=== PATIENT | male | born 1975 | race Caucasian/White ===

== ENCOUNTER → 2020-03-28 | Day surgery (SDC) | payer BC ==
[~2020-03-28] MED LIST: ACETAMINOPHEN 325 MG TABLET ONE; FENTANYL CITR 100 MCG/2 ML ONE; KETOROLAC 30 MG/ML INJ ONE; LIDOCAINE 1% MPF 5 ML VIAL ONE; LIDOCAINE 1% W/EPI 1:100,000 MDV 20 ML VIAL ONE; MIDAZOLAM HCL 2 MG/2 ML INJ ONE; Mastisol Adhesive Liq ONE; ONDANSETRON 4 MG/2 ML VIAL ONE; OXYMETAZOLINE HCL 0.05% 15ML NAS ONE; Ringers Lactate 1,000 ML IV ONE; dexAMETHasone 4 MG/ML VIAL ONE; propofoL 200 MG/20 ML VIAL IV ONE
--- OUTSIDE RECORDS SUMMARY | 2020-03-28 09:30 | XMS REPORT | Continuity of Care Document ---
:1975 Author Organization [facility] t Address [address] [place] [address] Dr. Palomo. [address] [place] [id number] Care Team Providers Name Role Phone DR JACQUES Attending Clinician Unavailable DR JACQUES Admitting Clinician Unavailable Problems This patient has no known problems. Allergies, Adverse Reactions, Alerts This patient has no known allergies or adverse reactions. Medications This patient has no known medications. Procedures This patient has no known procedures. Encounters Start End Encounter Admission Attending Care Care Encounter Source Date/Time Date/Time Type Type Clinicians Facility Department ID 2017-04-22 2017-04-22 Outpatient [place] [facility] [id number] 04:01:00 08:10:00 [facility] Results This patient has no known results.
[2020-03-28] MEDS: HYDROMORPHONE HCL 1 MG/ML INJ ONE ×4 (10:55→11:30)
[2020-03-28 11:12] VITALS: TEMP 97.1
[2020-03-28 11:17] VITALS: BP 125/59; O2SAT 100
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
== END ==
LOC: OR 09:25
PROVIDERS: ATTEND Otolaryngology
PROC: 0NSBXZZ Reposition Nasal Bone, External Approach (ICD-10-PCS; principal; 2020-03-28 08:45)
DX: S02.2XXA Fracture of nasal bones, initial encounter for closed fracture (principal); J34.2 Deviated nasal septum; M95.0 Acquired deformity of nose; J34.89 Other specified disorders of nose and nasal sinuses; R03.0 Elevated blood-pressure reading, without diagnosis of hypertension; Z20.828 Contact with and (suspected) exposure to other viral communicable diseases
CPT/HCPCS: 21320; 93005; U0002; J2250; J2405 ×2; J1100; J1170; J2704; J3010; J7120

== ENCOUNTER 2021-12-29 14:15 | Emergency (ER) | payer SELFPAY ==
--- OUTSIDE RECORDS SUMMARY | 2021-12-29 14:17 | XMS REPORT | Continuity of Care Document ---
:1975 Author Organization [facility] t Address [address] [place] [address] Dr. Palomo. [address] [place] [id number] Care Team Providers Name Role Phone DR [...] Department ID 2017-04-22 2017-04-22 Outpatient SANAZ KENT [facility] [place] [id number] 04:01:00 08:10:00 [facility] Results This patient has no known results.
--- NOTE | 2021-12-29 15:25 | RAD REPORT ---
EXAM DESCRIPTION: RAD - Chest Pa And Lat (2 Views) - 12/29/2021 3:11 pm CLINICAL HISTORY: Rib Pain - Left COMPARISON: None TECHNIQUE: Frontal and lateral views of the chest were obtained. FINDINGS: The lungs are clear. Minimal scarring changes seen lateral mid right lung field. Heart si ze is normal and central vasculature is within normal limits. No pleural effusion or pneumothorax se en. No aortic abnormality. Cortex of the posterior left third rib is irregular and nondisplaced fracture is suspected. This is n ot a usual site for fracture. No trauma history was detailed. Nondisplaced fracture of the tenth rib is seen. There may be nondisplaced fracture of the eighth rib. Rib detail is limited on standard two view imaging. IMPRESSION: Lateral lower left chest rib fractures are present, nondisplaced, with possible nondispl aced posterior third rib fracture on the left. No pathologic rib changes are seen. Rib detail is limited on standard two view exam. No trauma was de tailed. Fracture of the posterior third rib is unusual. Correlation is needed with any trauma history.
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
[2021-12-29 18:23] VITALS: BP 129/79; TEMP 98.2; O2SAT 100
== END 2021-12-29 18:18 | disposition left against medical advice (07) ==
LOC: ER 14:15
DX: Z53.21 Procedure and treatment not carried out due to patient leaving prior to being seen by health care provider (principal)
CPT/HCPCS: 71046; 99282

== ENCOUNTER 2024-10-12 12:36 | Emergency (ER) | payer BC ==
--- OUTSIDE RECORDS SUMMARY | 2024-10-12 12:38 | XMS REPORT | Continuity of Care Document ---
Author Name Unknown Address [address] [place] [address] [place] [address] [address] [place] [address] Care Team Providers Care Armed Security Professional Name Role Phone DR VERNON HANNA Attending Clinician Unavailable DR VERNON HANNA Admitting Clinician Unavailable Encounters Start Date/Time End Date/Time Encounter Type Admission Type Attending Clinicians Care Facility Care Department Encounter ID Source 2017-04-22 04:01:00 2017-04-22 08:10:00 Outpatient C VERNON HANNA [facility] [id number] [facility]
[2024-10-12] MEDS ORDERED: HYDROCODONE/APAP 5/325 MG TAB ONE (13:30)
--- NOTE | 2024-10-12 14:23 | RAD REPORT ---
EXAMINATION: XR RIGHT FOOT CLINICAL INDICATION: Male, 49 years old. PAIN TECHNIQUE: Multiple views of the right foot were obtained. COMPARISON: No prior exam. FINDINGS: Fracture involving the base of the distal phalanx of the great toe in a transverse fashion. Oblique fracture is seen involving the distal shaft of the second, fourth and fifth metatarsals. Mild soft tissue swelling along the dorsum of the forefoot.
--- NOTE | 2024-10-12 14:33 | EDPHYS ---
Physician Documentation [facility] Name: Hollis Patterson Age: 49 yrs Sex: Male : 1975 Arrival Date: 10/12/2024 Time: 12:36 Bed 11 Private MD: ED Physician Benedict Mensah HPI: 10/12 21:15 This 49 yrs old Male presents to ER via Ambulatory with complaints of Foot Injury - ms3 Right. 21:15 49-year-old male with no past medical history presents to the emergency department for ms3 right foot fractures. Patient states he was seen at [facility] on Tuesday after his injury. Patient states he was trying to clear his lawnmower discharge when his boot hit the lawnmower blade. Patient states his foot was placed in an Mando wrap and the pain has increased since being discharged from the emergency department.. Historical: - Allergies: 12:43 PENICILLINS; iw 12:43 Tramadol HCl; iw - Immunization history:: Adult Immunizations unknown. - Infectious Disease History:: Denies. - Social history:: Smoking status: unknown. ROS: 21:16 Constitutional: Negative for fever, and chills. Cardiovascular: Negative for chest ms3 pain, and palpitations. Respiratory: Negative for shortness of breath, cough, wheezing, and pleuritic chest pain, Abdomen/GI: Negative for abdominal pain, nausea, vomiting, diarrhea, and constipation, 21:16 MS/extremity: Positive for Right foot pain, Exam: 21:16 Constitutional: This is a well developed, well nourished patient who is awake, alert, ms3 and in no acute distress. Cardiovascular: Regular rate and rhythm with a normal S1 and S2. No gallops, murmurs, or rubs. Normal PMI, no JVD. No pulse deficits. Respiratory: Lungs have equal breath sounds bilaterally, clear to auscultation and percussion. No rales, rhonchi or wheezes noted. No increased work of breathing, no retractions or nasal flaring. Abdomen/GI: Soft, non-tender, with normal bowel sounds. No distension or tympany. No guarding or rebound. No evidence of tenderness throughout. 21:16 Musculoskeletal/extremity: Extremities: noted in the Right foot: contusion, ecchymosis, pain, swelling, tenderness, 21:16 Skin: Ecchymosis of right great toe. Vital Signs: 12:41 BP 129 / 79; Pulse 79; Resp 18; Pulse Ox 100% ; Weight 67.13 kg; Height 5 ft. 9 in. ; iw Pain 8/10; 14:40 BP 128 / 78; Pulse 80; Resp 20; Temp 98; Pulse Ox 100% on R/A; kj2 12:41 Body Mass Index 21.86 (67.13 kg, 175.26 cm) iw 12:41 Pain Scale: Adult iw MDM: 13:23 Medical Screening Exam initiated ms3 21:16 Differential diagnosis: fracture, sprain. Data reviewed: vital signs, nurses notes, ms3 radiologic studies, and as a result, I will discharge patient. I considered the following discharge prescriptions or medication management in the emergency department Medications were administered in the Emergency Department. See MAR. Independent interpretation of the following test(s) in the Emergency Department X-Ray: My interpretation is Right foot x-ray images reviewed by me reveal distal phalanx fracture of great toe, metatarsal fractures of the 2nd, 4th and 5th metatarsal. Counseling: I had a detailed discussion with the patient and/or guardian regarding the historical points, exam findings, and any diagnostic results supporting the discharge/admit diagnosis, lab results, radiology results, the need for outpatient follow up, to return to the emergency department if symptoms worsen or persist or if there are any questions or concerns that arise at home. Special discussion: I discussed with the patient/guardian in detail that at this point there is no indication for admission to the hospital. It is understood, however, that if the symptoms persist or worsen the patient needs to return immediately for re-evaluation. ED course: On reevaluation patient is without compartment syndrome, symptoms have improved, alert and orient x 4, no apparent distress. Patient to follow-up with podiatry in 2 to 3 days. Patient understands and agrees with plan. All questions were answered. Return precautions discussed include worsening symptoms, or any other concerns. Patient placed in Ortho boot and patient brought crutches to the emergency department for use. 10/12 13:15 Order name: Foot Right 3 View XRAY ms3 10/12 14:33 Order name: Misc. Order: Ortho boot; Complete Time: 15:11 ms3 Administered Medications: 13:36 Drug: HYDROcodone-acetaminophen PO 5 mg-325 mg 1 tabs PO once Route: PO; kj2 15:02 Follow up: Response: No adverse reaction kj2 Disposition Summary: 10/12/24 14:32 Discharge Ordered Notes: Location: Home ms3 Condition: Stable ms3 Diagnosis - Fracture of fifth metatarsal bone ms3 - Fracture of fourth metatarsal bone ms3 - Displaced fracture of second metatarsal bone, right foot, initial encounter for ms3 closed fracture - Nondisplaced fracture of distal phalanx of right great toe, initial encounter for ms3 closed fracture Followup: ms3 - With: Umang Rodriguez DPM - When: 2 - 3 days - Reason: Recheck today's complaints Discharge Instructions: - Discharge Summary Sheet ms3 - Metatarsal Fracture ms3 - Toe Fracture, [id number] ms3 Forms: - Medication Reconciliation Form ms3 - Antibiotic Education ms3 - Prescription Opioid Use ms3 - Patient Portal Instructions ms3 - Leadership Thank You Letter ms3 Prescriptions: - Tylenol-Codeine #3 300mg-30mg Oral tablet - take 1 tablet ORAL route every 4 hours As needed; 12 tablet; Refills: 0, ms3 Product Selection Permitted Signatures: Dispatcher [employer] Lilibeth Jeffries, RN RN Benedict Walker DO DO ms3 Emma Varela, RN RN kj2
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
[2024-10-12 16:23] VITALS: BP 128/78; TEMP 98; O2SAT 100
== END 2024-10-12 15:23 | disposition home or self-care (01) ==
LOC: ER 12:36
DX: S92.351A Displaced fracture of fifth metatarsal bone, right foot, initial encounter for closed fracture (principal); S92.341A Displaced fracture of fourth metatarsal bone, right foot, initial encounter for closed fracture; S92.321A Displaced fracture of second metatarsal bone, right foot, initial encounter for closed fracture; S92.424A Nondisplaced fracture of distal phalanx of right great toe, initial encounter for closed fracture
CPT/HCPCS: 99283